=== PATIENT | female | born 1990 | race Caucasian/White ===

== ENCOUNTER 2017-02-24 09:00 | Inpatient (IN) | payer MEDICARE, OTHER ==
[2017-02-24] MEDS ORDERED: Succinylcholine/Normal Saline 200 MG/10 ML Syringe ONE (09:12)
[2017-02-24] MEDS ORDERED: Ondansetron 4 MG/2 ML SDV ONE (09:12)
[2017-02-24] MEDS ORDERED: Neostigmine Methylsulfate 1 MG/ML 5 ML Syringe ONE (09:12)
[2017-02-24] MEDS ORDERED: fentaNYL 250 MCG/5 ML SDV ONE (09:12)
[2017-02-24] MEDS ORDERED: Rocuronium 50 MG/5 ML Vial ONE (09:12)
[2017-02-24] MEDS ORDERED: Midazolam 1 MG/ML 2 ML SDV ONE (09:12)
[2017-02-24] MEDS ORDERED: Dexamethasone 4 MG/ML SDV ONE (09:12)
[2017-02-24] MEDS ORDERED: Propofol 200 MG/20 ML SDV ONE (09:12)
[2017-02-24] MEDS ORDERED: cefOXitin 2 GM Vial ONE (09:13)
[2017-02-24] MEDS ORDERED: Celecoxib 200 MG Cap PO ONE (10:00)
[2017-02-24] MEDS ORDERED: Dextrose 5%-Lactated Ringers 1,000 ML IV SCH ×2 (10:00→14:30)
[2017-02-24] MEDS ORDERED: Gabapentin 300 MG Cap PO ONE (10:00)
[2017-02-24] MEDS ORDERED: Acetaminophen 500 MG Tab PO ONE (10:00)
[2017-02-24] MEDS ORDERED: Scopolamine 1.5 MG Transdermal Patch TOP ONE (10:00)
[2017-02-24] MEDS ORDERED: Ketamine 500 MG/5 ML MDV IV SCH (11:00)
[2017-02-24] MEDS ORDERED: Lidocaine 2% 100 MG/5 ML Syringe IVPUSH ONE (11:00)
[2017-02-24] MEDS ORDERED: Ropivacaine 60 ML, Dexamethasone 8 MG, EPINEPHrine 0.4 MG, Sodium Chloride 0.9% 17.6 ML NERVRT SCH ×4 (11:00)
[2017-02-24] MEDS ORDERED: cefOXitin 2 GM in Sodium Chloride 0.9% 50 ML IV ONE (11:00)
[2017-02-24] MEDS ORDERED: HYDROmorphone 1 MG/ML Syringe IVPUSH ONE ×2 (13:17→14:26)
[2017-02-24] MEDS ORDERED: SCOPOLAMINE PATCH ASK TOP SCH (15:39)
[2017-02-24] MEDS ORDERED: Ondansetron 4 MG/2 ML SDV IVPUSH PRN (15:39)
[2017-02-24] MEDS ORDERED: hydrOXYzine HCl 50 MG/ML SDV IM PRN (15:39)
[2017-02-24] MEDS ORDERED: Labetalol 20 MG/4 ML Syringe IVPUSH PRN (15:39)
[2017-02-24] MEDS ORDERED: Metoclopramide 10 MG/2 ML SDV IV PRN (15:43)
[2017-02-24] MEDS ORDERED: diphenhydrAMINE 50 MG/ML SDV IV PRN (15:44)
[2017-02-24] MEDS ORDERED: Insulin Aspart 100 Units/ML 3 ML Pen SUBCUT PRN (15:50)
[2017-02-24] MEDS: Acetaminophen Soln 650 MG/20.3 ML UD Cup PO SCH ×2 (16:36→21:17)
[2017-02-24] MEDS: MVI, Adult with Vitamin K 10 ML, Thiamine 200 MG, Chromium/Copper/Mang/Selen/Zn 1 ML in... IV SCH ×4 (16:42)
[2017-02-24] MEDS: cefOXitin 2 GM in Sodium Chloride 0.9% 50 ML IV SCH ×2 (18:29→22:32)
[2017-02-24] MEDS: Pantoprazole 40 MG Vial IVPUSH SCH (18:29)
[2017-02-24] MEDS: Heparin Sodium 5,000 Units/ML Vial SUBCUT SCH (18:38)
[2017-02-24] MEDS: Gabapentin 250 MG/5 ML Solution ML 470 ML Bottle PO SCH (20:12)
[2017-02-25] MEDS: HYDROmorphone 1 MG/ML Syringe IVPUSH PRN ×2 (02:21→08:10)
[2017-02-25] MEDS ORDERED: Iohexol 647 MG/ML 50 ML SDV PO SCH (04:00)
[2017-02-25] MEDS: Lidocaine 0.4%/D5W 2 GM/500 ML BAG IV SCH ×2 (04:41→14:44)
[2017-02-25] MEDS: Acetaminophen Soln 650 MG/20.3 ML UD Cup PO SCH ×4 (04:45→21:17)
[2017-02-25] MEDS: cefOXitin 2 GM in Sodium Chloride 0.9% 50 ML IV SCH ×2 (04:49→14:00)
[2017-02-25] MEDS: Heparin Sodium 5,000 Units/ML Vial SUBCUT SCH ×2 (07:53→17:44)
--- NOTE | 2017-02-25 09:02 | CR ---
Limited upper GI The patient is status post Jey-en-Y gastric bypass. There are left upper quadrant drains in place. There is no extravasation of contrast. The gastric pouch empties readily into a nondilated Jey limb . No complications are evident. Impression: 1. Status post Jey-en-Y gastric bypass without evidence for complication.
[2017-02-25] MEDS: TRANSDERM SCOP CHECK TOP SCH (10:02)
[2017-02-25] MEDS: Celecoxib 200 MG Cap PO SCH (10:10)
[2017-02-25] MEDS: Gabapentin 250 MG/5 ML Solution ML 470 ML Bottle PO SCH ×3 (10:15→21:21)
[2017-02-25] MEDS: traMADol 50 MG Tab PO PRN ×2 (15:12→21:21)
[2017-02-25] MEDS: MVI, Adult with Vitamin K 10 ML, Thiamine 200 MG, Chromium/Copper/Mang/Selen/Zn 1 ML in... IV SCH ×4 (15:13)
[2017-02-25] MEDS: Pantoprazole 40 MG Vial IVPUSH SCH (17:42)
[2017-02-25] MEDS: metFORMIN 500 MG Tab PO SCH (17:43)
[2017-02-25] MEDS ORDERED: Dextrose 5%-Lactated Ringers 1,000 ML IV SCH (18:00)
--- NOTE | 2017-02-25 18:03 | PN ---
DATE OF SERVICE: 02/25/2017 SUBJECTIVE: Amanda is postop day one. Blood sugars have been 189, 248, and 198. Hemoglobin A1c was 6.6. Her upper GI was normal this morning. She is tolerating step one diet well. She did receive Dilaudid IV x1 for increased pain. REVIEW OF SYSTEMS: Remainder of review of systems negative for any pertinent positives and negatives. OBJECTIVE: GENERAL: Amanda Wetzel is a 26-year-old female. VITAL SIGNS: TPR is 98.6, 73, and 16, and blood pressure 130/90, and O2 was 96% on room air. HEENT: Negative. NECK: Supple. HEART: Regular rate and rhythm. LUNGS: Clear. ABDOMEN: Dressings dry and intact. Abdominal binder is on. NATHANIEL drain x1, drains 40 mL of a light pink drainage. EXTREMITIES: Without peripheral edema. SCDs are on. ASSESSMENT: Laparoscopic Jey-en-Y gastric bypass surgery. Repair of paraesophageal diaphragmatic hernia, and Melchor-Cut needle liver biopsy for morbid obesity, hepatomegaly, and diaphragmatic hernia. Date of surgery 02/24/2017. PLAN: 1. Step two gastric bypass diet. Decrease IV to 100 mL per hour, metformin 1000 mg b.i.d., dressing off, may shower. Dietary consult: Give three med cups per hour to ensure adequate oral intake. Record at bedside. Tramadol 50 mg q.4 hours p.r.n. pain. 2. Good pulmonary toilet encouraged. 3. We will evaluate p.r.n. or in a.m. April Mcgill PA-C /[id number]
[2017-02-26] MEDS: Acetaminophen Soln 650 MG/20.3 ML UD Cup PO SCH ×4 (04:35→21:30)
[2017-02-26] MEDS: Heparin Sodium 5,000 Units/ML Vial SUBCUT SCH ×2 (05:30→17:29)
[2017-02-26] MEDS ORDERED: Magnesium Hydroxide 400 MG/5 ML Susp 30 ML Cup PO ONE (08:15)
[2017-02-26] MEDS: Celecoxib 200 MG Cap PO SCH (08:38)
[2017-02-26] MEDS: Gabapentin 250 MG/5 ML Solution ML 470 ML Bottle PO SCH ×3 (08:38→21:34)
[2017-02-26] MEDS: metFORMIN 500 MG Tab PO SCH ×2 (08:38→17:29)
[2017-02-26] MEDS ORDERED: Cyanocobalamin (Vitamin B12) 1,000 MCG/ML SDV IM ONE (09:00)
[2017-02-26] MEDS: TRANSDERM SCOP CHECK TOP SCH (09:56)
[2017-02-26] MEDS: traMADol 50 MG Tab PO PRN ×2 (14:32→20:04)
[2017-02-27] MEDS: traMADol 50 MG Tab PO PRN ×2 (02:01→15:36)
[2017-02-27] MEDS ORDERED: Ondansetron 4 MG Tab.DIS PO PRN (02:02)
[2017-02-27] MEDS: Acetaminophen Soln 650 MG/20.3 ML UD Cup PO SCH ×4 (04:23→21:02)
[2017-02-27] MEDS: Heparin Sodium 5,000 Units/ML Vial SUBCUT SCH ×2 (05:42→17:31)
[2017-02-27] MEDS ORDERED: Loperamide 2 MG Cap PO PRN (08:21)
[2017-02-27] MEDS: Celecoxib 200 MG Cap PO SCH (09:15)
[2017-02-27] MEDS: metFORMIN 500 MG Tab PO SCH ×2 (09:15→17:34)
[2017-02-27] MEDS: Gabapentin 250 MG/5 ML Solution ML 470 ML Bottle PO SCH ×3 (09:19→21:02)
[2017-02-27] MEDS: TRANSDERM SCOP CHECK TOP SCH (11:17)
--- NOTE | 2017-02-27 13:23 | PN ---
DATE OF SERVICE: 02/26/2017 The patient has been afebrile with stable vital signs. Oral intake is still little bit slow, but sluggish and we will work on that today. Blood sugars are all quite good at this point and we will discontinue the Accu-Cheks. She will be continued on metformin for the PCOS. Otherwise, we will plan to have the patient discharge on Tuesday after some additional dietary teaching is undertaken at that time. Chema Ruiz MD /[id number]
--- NOTE | 2017-02-27 15:20 | PN ---
DATE OF SERVICE: 02/27/2017 The patient has been afebrile with stable vital signs. Oral intake has been fair, recorded at 970 mL over the last 24 hours. The plan will be to have the patient and family tomorrow morning prior to likely discharge at that time. Chema Ruiz MD /[id number]
[2017-02-28] MEDS: traMADol 50 MG Tab PO PRN ×2 (01:43→06:57)
[2017-02-28] MEDS: Acetaminophen Soln 650 MG/20.3 ML UD Cup PO SCH (04:19)
[2017-02-28] MEDS: Heparin Sodium 5,000 Units/ML Vial SUBCUT SCH (05:20)
[2017-02-28 07:53] VITALS: BP 154/87
[2017-02-28] MEDS: TRANSDERM SCOP CHECK TOP SCH (08:55)
[2017-02-28] MEDS: metFORMIN 500 MG Tab PO SCH (09:07)
[2017-02-28] MEDS: Celecoxib 200 MG Cap PO SCH (09:07)
[2017-02-28] MEDS: Gabapentin 250 MG/5 ML Solution ML 470 ML Bottle PO SCH (09:08)
--- NOTE | 2017-02-28 10:08 | DISCH ---
ADMISSION DIAGNOSES: Morbid obesity, BMI 57.8, hypertension, depression, migraine headaches, uncontrolled diabetes type 2, hemoglobin A1c of 6.6. DISCHARGE DIAGNOSIS: Laparoscopic Jey-en-Y gastric bypass surgery. Date of surgery 02/24/2017. HISTORY: Amanda Munroe is a 26-year-old female with longstanding history of morbid obesity and increasing comorbidities. After preoperative evaluation and discussion of possible risks and possible complications, she wished to proceed with surgical procedure. HOSPITAL COURSE: Amanda had her surgery on 02/25/2017. She had no operative complications. On postop day #1, she was started on step-2 gastric bypass diet without cereal. She was started on Ultram/tramadol due to increased pain. Her activity was good. She did receive dietary instruction on 02/25/2017. She had no complications and she was able to be discharged to home on 03/07/2017. PHYSICIAL EXAMINATION: GENERAL: Amanda Munroe is a 26-year-old female. VITAL SIGNS: Height is 5 feet 5 inches. Weight is 347 pounds. TPR is 98.7, 79, 18, and blood pressure 154/87. HEENT: Negative. NECK: Supple. HEART: Regular rate and rhythm. LUNGS: Clear. ABDOMEN: Incisions look good. Abdominal binder is on. EXTREMITIES: Without peripheral edema. DISPOSITION: Discharge to home. CONDITION: Stable and improving. FOLLOWUP APPOINTMENT: April Mcgill PA-C, 03/08/2017 at 10 a.m. DISCHARGE MEDICATIONS: Home medications: Tylenol 650 mg p.o. every 6 hours schedule for 2 weeks and then as needed, Celebrex 200 mg one daily #14, Zofran ODT 4 mg p.o. q.4 hours p.r.n. nausea #30, metformin 1000 mg p.o. b.i.d. #30, four refills, Ultram 50 mg p.o. q.4 hours p.r.n. severe pain. She is to resume her home medications of Zyrtec 10 mg daily, Nexplanon as directed, Prozac 20 mg p.o. daily, lisinopril 5 mg p.o. daily, sumatriptan 20 mg nasal spray p.r.n. migraine headaches. DIET AFTER DISCHARGE: Step-2 gastric bypass diet with no cereal. Drink 8 to 10 glasses of water a day. ACTIVITY: No lifting greater than 10 pounds for 2 weeks. Activity, walk 8 times daily inside your home. Driving, do not drive on pain medication. Shower bathing, may shower. Keep operative site clean and dry. Wound incision care, wear abdominal binder for 2 weeks and then as tolerated. Notify provider if fever, increased pain, swelling, redness, drainage, nausea, or vomiting. Other instructions; start taking multivitamin chewable complete twice a day, start taking vitamin B12 1000 mcg under tongue once a day. Write down everything you eat or drink before an appointment and use incentive spirometer 10 times in a row every hour while awake for 2 weeks.
--- NOTE | 2017-02-28 13:26 | OR ---
DATE OF PROCEDURE: 02/24/2017 PREOPERATIVE DIAGNOSES: 1. Morbid obesity. 2. Chronic cholecystitis and cholelithiasis. POSTOPERATIVE DIAGNOSES: 1. Morbid obesity. 2. Chronic cholecystitis and cholelithiasis. 3. Marked hepatomegaly. 4. Paraesophageal diaphragmatic hernia. OPERATIVE PROCEDURE: 1. Laparoscopic Jey-en-Y gastric bypass with long limb gastroenterostomy (27301). 2. Melchor-Cut needle liver biopsy (88764). 3. Repair of paraesophageal diaphragmatic hernia (98930). ANESTHESIA: General. INSURANCE CLAIMS SPECIALIST: April Mcgill PA-C. INDICATIONS FOR PROCEDURE: This is a 26-year-old female presenting with longstanding morbid obesity and increasingly significant comorbidities. After preop evaluations and discussion, she wished to proceed with a gastric bypass procedure. Potential risks of the procedure including bleeding, infection, leaks from various GI tract closures along with possibility of cardiopulmonary, septic, or hemorrhagic complications leading to were all discussed, and the patient wishes to proceed. The patient was also noted to have cholelithiasis and appears to have had some episodes of biliary colic. Concurrent cholecystectomy will be undertaken. Potential risks of that, including injury to common bile duct, migration of stones into the common bile duct, requiring additional procedures for correction, were also reviewed, and the patient wishes to proceed. DETAILS OF PROCEDURE: The patient was taken to the operating room. After general endotracheal anesthesia was induced, was converted to a lithotomy position. The abdomen was then prepped and draped and a gastrointestinal balloon catheter placed orally per Anesthesia. At 15 cm inferior, 5 cm left of xiphoid process, a transverse incision was made and peritoneal cavity entered under direct vision with an Optiview trocar, inflated to 15 mmHg pressure with CO2. Laparoscope was then reinserted. No underlying trocar insertion site injuries were seen. Following this, 5 additional trocars were placed across the upper and mid abdomen. General exploration was undertaken. The patient was noted to have a quite striking hepatomegaly with the liver being at least 3 times normal size and grossly fatty infiltrated. Melchor-Cut needle biopsies were obtained from the left lobe of the liver. Minimal bleeding from the biopsy sites was controlled with electrocautery. At this point, the omentum was divided in the midline up to the level of the transverse colon. This allowed identification of small bowel at the ligament of Treitz. Small bowel was then traced out 200 cm distal to that point and was divided transversely with a SVETLANA stapler. Small bowel was then traced out an additional 200 cm, where the [id number] enteroenterostomy was accomplished with an internal firing of the Endo-SVETLANA 60 mm stapler. Common opening was then closed transversely with the same stapler, angles anastomosed, and the mesenteric defect approximated with some 0 Ethibond stitch, along with fibrin sealant. The divided end of the Jey limb was then from the mesentery for a few centimeters, which allowed an antecolic position of the Jey limb up to the level of the gastroesophageal junction. The liver was then retracted anteriorly, allowing inspection of the area of the diaphragmatic hiatus. The patient was noted to have a paraesophageal hernia with prolapse of a portion of the gastric fundus and some perigastric fat in a plane anterior to the course of the esophagus. This was reduced, the peritoneum over the hernia incised, and an anterior repair of the diaphragmatic hernia accomplished with a series of 0 Ethibond sutures reinforced with PTFE pledgets. The gastrointestinal balloon catheter was inflated 15 mL and pulled up snugly against the EG junction, gastric wall over the apex of the balloon was then marked with electrocautery, and the balloon catheter deflated and pulled up into the esophagus. The lesser omental tissue adjacent to gastric cardia was then incised, allowing dissection behind the stomach at that level. Pouch formation was initiated with a transversely-oriented SVETLANA stapler firing at the level of cauterized cynthia of the gastric pouch. Two additional firings up to and through the angle of His were then accomplished with a SVETLANA stapler, and the pouch at that point was completed. Both staple lines were inspected and found to be intact. The anvil of a 21 mm EEA stapler was then attached to a [place] sump type tube. The latter was brought down through the mouth and taken out through a small opening in the gastric pouch. The divided end of the Jey limb was then opened, and the main body of EEA stapler was passed several centimeters into the lumen of the small bowel, brought up to the anvil and united with it, thus creating the gastrojejunostomy. Upon removal of the stapler, double donuts of mucosa were noted within it. Small bowel was closed off with a vascular staple line. Gastrojejunostomy was reinforced with some 3-0 Vicryl seromuscular stitch, along with fibrin sealant. A leak test was accomplished with injection of 120 mL of air in the gastric pouch, while submerged with cefoxitin-containing saline solution. No leaks were identified. One Clint-Nicole drain was then placed adjacent to gastrojejunostomy. Attention was then taken to the cholecystectomy. One additional 5 mm trocar was placed in the right upper quadrant. As one attempted to expose the gallbladder, it became evident that the degree of hepatomegaly would make the cholecystectomy quite unsafe, as the visualization of the gallbladder neck and cystohepatic triangle area was significantly impaired by the striking amount of hepatomegaly. At that point, the decision was made to not proceed with a cholecystectomy today, and if the patient remains symptomatic, proceed in perhaps 6 to 12 months, when the liver is reduced in size and the procedure would be more of a safe undertaking. Given this, the trocars were removed, the peritoneal cavity deflated, and the incision closed with some 4-0 Vicryl skin stitch. Dressing was applied. The patient was taken to the recovery room in satisfactory condition. Physician event marketing assistant, April Mcgill, played an essential role in assisting in this case, helping to position the patient, retract structures as needed, as well as suturing and cutting sutures when indicated. Her presence improved the patient's safety and decreased operative time. Chema Ruiz MD /[id number]
== END 2017-02-28 10:37 | disposition home or self-care (01) | DRG 620 ==
LOC: EDSTATUS 09:00 → JP.MS 09:06 → JP.SDS 09:07 → JP.2SS 13:54
PROVIDERS: ADMIT Surgery; ATTEND Surgery
PROC: 0BQS4ZZ (ICD-10-PCS; principal; 2017-02-24)
PROC: 0DB83ZZ Excision of Small Intestine, Percutaneous Approach (ICD-10-PCS; principal; 2017-02-24)
PROC: 0FB24ZX Excision of Left Lobe Liver, Percutaneous Endoscopic Approach, Diagnostic (ICD-10-PCS; principal; 2017-02-24)
PROC: 0BQR4ZZ (ICD-10-PCS; principal; 2017-02-24)
PROC: 0D164ZA Bypass Stomach to Jejunum, Percutaneous Endoscopic Approach (ICD-10-PCS; principal; 2017-02-24)
PROC: 0DB63ZZ Excision of Stomach, Percutaneous Approach (ICD-10-PCS; principal; 2017-02-24)
DX: E66.01 Morbid (severe) obesity due to excess calories (principal); K80.10 Calculus of gallbladder with chronic cholecystitis without obstruction; Z68.43 Body mass index [BMI] 50.0-59.9, adult; R16.0 Hepatomegaly, not elsewhere classified; K44.9 Diaphragmatic hernia without obstruction or gangrene; I10 Essential (primary) hypertension; R73.03 Prediabetes; K76.0 Fatty (change of) liver, not elsewhere classified; Z53.09 Procedure and treatment not carried out because of other contraindication; Z79.84 Long term (current) use of oral hypoglycemic drugs; G43.909 Migraine, unspecified, not intractable, without status migrainosus; F41.9 Anxiety disorder, unspecified; F32.9 Major depressive disorder, single episode, unspecified; F81.9 Developmental disorder of scholastic skills, unspecified; J30.2 Other seasonal allergic rhinitis; Z88.1 Allergy status to other antibiotic agents
CPT/HCPCS: 36415; 74240; 74240-26; 82962; 83036; 86850; 86900; 86901; 87493; 88307; 88313; 94762; A9270-GY; C9113; J0171; J0694; J1100; J1170; J1644; J2001; J2250; J2405; J2704; J2795; J3010; J3411; J3420; J7030; J7040; J7042; J7050; Q9967

== ENCOUNTER 2017-03-14 08:53 | Day surgery (SDC) | payer MEDICARE, OTHER ==
[2017-03-14] MEDS ORDERED: Cyanocobalamin (Vitamin B12) 1,000 MCG/ML SDV IM ONE (09:15)
[2017-03-14] MEDS ORDERED: Lactated Ringers 1,000 ML IV SCH (09:30)
[2017-03-14] MEDS ORDERED: Glycopyrrolate 0.2 MG/ML 2 ML SYRINGE IVPUSH ONE (10:15)
[2017-03-14] MEDS ORDERED: MVI, Adult with Vitamin K 10 ML, Thiamine 200 MG, Chromium/Copper/Mang/Selen/Zn 1 ML in... IV ONE ×4 (10:30)
[2017-03-14] MEDS ORDERED: Midazolam 1 MG/ML 2 ML SDV ONE (11:05)
[2017-03-14] MEDS ORDERED: Propofol 200 MG/20 ML SDV ONE ×2 (11:05→11:34)
[2017-03-14] MEDS ORDERED: fentaNYL 100 MCG/2 ML SDV ONE (11:05)
[2017-03-14 13:28] VITALS: BP 126/89
--- NOTE | 2017-03-20 13:47 | OR ---
DATE OF PROCEDURE: 03/14/2017 PREOPERATIVE DIAGNOSIS: Stricture gastrojejunostomy. POSTOPERATIVE DIAGNOSIS: Stricture gastrojejunostomy. OPERATIVE PROCEDURE: Upper GI endoscopy with dilation gastrojejunostomy (60407). ANESTHESIA: IV sedation. INDICATIONS FOR PROCEDURE: A 26-year-old status post Jey-en-Y gastric bypass on 02/24/2017. She now presents with symptoms suggestive of a stricture at the gastrojejunostomy. Plan is to proceed with upper GI endoscopy with dilation as indicated. Potential risks including bleeding and perforation were discussed, and the patient wishes to proceed. DETAILS OF PROCEDURE: The patient was taken to the operating room and placed in a left lateral decubitus position. IV sedation was administered, after which the upper GI endoscope was passed orally through the length of the esophagus and into the gastric pouch. The patient was noted to have a quite tight stricture at the gastrojejunostomy. Initially, the Bard gastrointestinal catheter was centered across the anastomosis and inflated to 30- Lao size. This did not result in a satisfactory dilation, therefore a balloon with 36- Lao size was then inflated across the anastomosis and at the deflation of this balloon did appear to be satisfactory as dilation of the stricture allowing the scope to be passed through the area. No complications were noted and the scope was withdrawn. The patient was taken to the recovery room in satisfactory condition. The patient in all likelihood will finally need at least 1 to 2 additional dilations based on the findings of today's exam, and the patient and her mother were informed that she should call us whenever she feels like things were getting tight pertaining to the anastomosis. Otherwise, she will be following up with April Mcgill. Chema Ruiz MD /[id number]
== END 2017-03-14 13:37 | disposition home or self-care (01) ==
LOC: JP.SDS 08:53
PROVIDERS: ATTEND Surgery
DX: K91.89 Other postprocedural complications and disorders of digestive system (principal); I10 Essential (primary) hypertension; R56.9 Unspecified convulsions; E11.9 Type 2 diabetes mellitus without complications; Z98.84 Bariatric surgery status
CPT/HCPCS: 43245; J2250; J2704; J3010; J3411; J3420; J7120

== ENCOUNTER 2017-03-26 05:47 | Day surgery (SDC) | payer MEDICARE, OTHER ==
[2017-03-26] MEDS ORDERED: Propofol 200 MG/20 ML SDV ONE (07:09)
[2017-03-26] MEDS ORDERED: fentaNYL 100 MCG/2 ML SDV ONE (07:09)
[2017-03-26] MEDS ORDERED: Midazolam 1 MG/ML 2 ML SDV ONE (07:09)
[2017-03-26] MEDS ORDERED: Lactated Ringers 1,000 ML IV ONE (07:30)
[2017-03-26] MEDS ORDERED: Glycopyrrolate 0.2 MG/ML 2 ML SYRINGE IVPUSH ONE (08:00)
[2017-03-26] MEDS ORDERED: Cyanocobalamin (Vitamin B12) 1,000 MCG/ML SDV IM ONE (08:00)
[2017-03-26] MEDS ORDERED: MVI, Adult with Vitamin K 10 ML, Chromium/Copper/Mang/Selen/Zn 1 ML, Thiamine 200 MG in... IV ONE ×4 (08:30)
[2017-03-26 10:35] VITALS: BP 113/65
--- NOTE | 2017-04-03 10:49 | OR ---
DATE OF PROCEDURE: 03/26/2017 PREOPERATIVE DIAGNOSIS: Strictured gastrojejunostomy. POSTOPERATIVE DIAGNOSIS: Strictured gastrojejunostomy. OPERATIVE PROCEDURE: Upper GI endoscopy with dilation of gastrojejunostomy (66083). ANESTHESIA: IV sedation. INDICATIONS: This is a 26-year-old female presenting with some symptoms of stricturing at her gastrojejunostomy. She is status post Jey-en-Y gastric bypass on 02/24/2017. The plan is to proceed with upper GI endoscopy with dilation as indicated. Potential risks including bleeding and perforation were discussed, and the patient wishes to proceed. DETAILS OF PROCEDURE: The patient was taken to the operating room and placed in a left lateral decubitus position. IV sedation was administered, after which, the upper GI endoscope was passed orally through the length of the esophagus and into the gastric pouch. The patient was noted to have quite tight stricture at the gastrojejunostomy. Using fluoroscopy for guidance, a gastrointestinal balloon catheter was then centered across the anastomosis and inflated to 30-Bol[place] size. Given the relatively early postoperative timing and a quite narrowed stricture, we felt a 30-Bolivian dilator would be reasonably safe for today's dilation. Upon removal of the dilator, the scope could easily be passed through the anastomosis with no complications noted. The scope was withdrawn. The patient was taken to the recovery room in satisfactory condition. Chema Ruiz MD /[id number]
== END 2017-03-26 10:36 | disposition home or self-care (01) ==
LOC: JP.SDS 05:47
PROVIDERS: ATTEND Surgery
DX: K91.89 Other postprocedural complications and disorders of digestive system (principal); Z88.1 Allergy status to other antibiotic agents; Z98.84 Bariatric surgery status
CPT/HCPCS: 43245; J2250; J2704; J3010; J3411; J3420; J7120

== ENCOUNTER 2017-04-27 10:55 | Day surgery (SDC) | payer MEDICARE, OTHER ==
[2017-04-27] MEDS ORDERED: Lactated Ringers 1,000 ML IV SCH (11:45)
[2017-04-27] MEDS ORDERED: Cyanocobalamin (Vitamin B12) 1,000 MCG/ML SDV IM ONE (12:00)
[2017-04-27] MEDS ORDERED: Glycopyrrolate 0.2 MG/ML 2 ML SYRINGE IVPUSH ONE (12:30)
[2017-04-27] MEDS ORDERED: MVI, Adult with Vitamin K 10 ML, Thiamine 200 MG, Chromium/Copper/Mang/Selen/Zn 1 ML in... IV ONE ×8 (13:00)
[2017-04-27] MEDS ORDERED: Midazolam 1 MG/ML 2 ML SDV ONE (13:57)
[2017-04-27] MEDS ORDERED: Propofol 200 MG/20 ML SDV ONE ×2 (13:57→14:22)
[2017-04-27] MEDS ORDERED: fentaNYL 100 MCG/2 ML SDV ONE (13:57)
[2017-04-27 16:36] VITALS: BP 124/81
--- NOTE | 2017-04-28 08:29 | OR ---
DATE OF PROCEDURE: 04/27/2017 PREOPERATIVE DIAGNOSIS: Stricture gastrojejunostomy. POSTOPERATIVE DIAGNOSIS: Stricture gastrojejunostomy. PROCEDURES: Esophagogastrojejunoscopy with dilatation of gastrojejunostomy with 36-Citizen Of [place] dilator. ANESTHESIA: IV anesthesia with monitored anesthesia care. INDICATION: This 26-year-old white female is about 2 months status post a Jey- en-Y gastric bypass for morbid obesity. She is now having trouble getting food down. She has had two prior gastric dilatations. She is referred for a repeat gastric dilatation, last one was done with a 36-Citizen Of [place] dilator and she tolerated this well. I counseled her for a gastric dilatation including risks and alternatives, and she gave her informed consent to proceed. DESCRIPTION OF PROCEDURE: The patient was placed in the left lateral decubitus position. IV anesthesia was administered by the Anesthesia Service. Time-out was held. The flexible video Olympus upper endoscope was passed through her mouth, down her stomach and into her gastric remnant. The anastomosis was noted to be strictured. The scope could not be made to pass beyond it. Under fluoroscopic guidance, we placed a 36-Citizen [place] balloon across the stricture and then inflated the balloon for about a minute. The balloon was then deflated. We attempted to pass the scope across the anastomosis again and it was still too tight. We repeated the process with the balloon then being ruptured on a staple. The balloon was removed and a new one was obtained. This balloon was passed across the anastomosis, it was under fluoroscopic guidance. It was inflated for about a minute. The balloon was then removed and then we were able to easily pass the scope across the anastomosis. The scope was then removed. She tolerated the procedure well. Fady Elliott MD /[id number] [facility]
== END 2017-04-27 16:05 | disposition home or self-care (01) ==
LOC: JP.SDS 10:55
PROVIDERS: ATTEND Surgery
DX: K91.89 Other postprocedural complications and disorders of digestive system (principal); E66.01 Morbid (severe) obesity due to excess calories; Z98.84 Bariatric surgery status; Z88.1 Allergy status to other antibiotic agents
CPT/HCPCS: 43245; J2250; J2704; J3010; J3411; J3420; J7120